=== PATIENT | male | born 1985 | race Native Hawaiian/Other Pacific Islander ===

== ENCOUNTER 2016-07-31 09:30 | Observation (INO) | payer OTHER ==
[2016-07-31 09:32] VITALS: BMI 21.5
[2016-07-31] MEDS ORDERED: Sodium Chloride 0.9% 1,000 ML IV STA (09:58)
[2016-07-31 10:10] LABS: BASO % 0.1 % (0.0-2.0); LYMPH # 0.7 K/uL (1.0-4.3); LYMPH % 7.1 % (20.0-40.0); MEAN CELL VOLUME 83.8 fl (80.0-94.0); MEAN CORPUSCULAR HEMOGLOBIN 28.2 pg (27.0-31.0); MEAN CORPUSCULAR HGB CONC 33.7 g/dL (33.0-37.0); MEAN PLATELET VOLUME 7.3 fl (7.2-11.7); MONO # 0.7 K/uL (0.0-0.8); NEUT # 8.4 K/uL (1.8-7.0); NEUT % 85.8 % (50.0-75.0); PLATELET COUNT 217 K/uL (130-400); RED CELL DISTRIBUTION WIDTH 13.9 % (11.5-14.5); WHITE BLOOD COUNT 9.8 K/uL (4.8-10.8)
[2016-07-31 10:23] LABS: ALB/GLOB RATIO 1.4 (1.0-2.1); ALKALINE PHOSPHATASE 66 U/L (38-126); ALT/SGPT 35 U/L (21-72); AST/SGOT 34 U/L (17-59); BILIRUBIN,TOTAL 0.6 mg/dl (0.2-1.3); BLOOD UREA NITROGEN 20 mg/dl (9-20); CALCIUM 9.4 mg/dL (8.4-10.2); CARBON DIOXIDE 26 mmol/L (22-30); CHLORIDE 98 mmol/L (98-107); GFR AFRICAN-AMERICAN > 60; GLUCOSE,RANDOM 127 mg/dL (75-110); POTASSIUM 4.2 MMOL/L (3.6-5.0); SODIUM 141 mmol/l (132-148); TOTAL PROTEIN 8.7 G/DL (6.3-8.2)
[2016-07-31 10:50] LABS: NEUTROPHIL 83 % (42-75); TOTAL CELLS COUNTED 100
--- NOTE | 2016-07-31 11:06 | CT ---
PROCEDURE: CT HEAD WITHOUT CONTRAST. HISTORY: severe headache COMPARISON: None available. TECHNIQUE: Axial computed tomography images were obtained through the head/brain without intravenous contrast. Radiation dose: Total exam DLP = 780.30 mGy-cm. This CT exam was performed using one or more of the following dose reduction techniques: Automated exposure control, adjustment of the mA and/or kV according to patient size, and/or use of iterative reconstruction technique. FINDINGS: HEMORRHAGE: No intracranial hemorrhage. BRAIN: No mass effect or edema. No atrophy or chronic microvascular ischemic changes. VENTRICLES: Unremarkable. No hydrocephalus. CALVARIUM: Unremarkable. PARANASAL SINUSES: Unremarkable as visualized. No significant inflammatory changes. MASTOID AIR CELLS: Unremarkable as visualized. No inflammatory changes. OTHER FINDINGS: None. IMPRESSION: No evidence of acute intracranial hemorrhage intracranial collection mass effect or midline shift.
[2016-07-31] MEDS ORDERED: Dextrose 5%/0.45% NS 1,000 ML IV SCH (11:15)
[2016-07-31] MEDS ORDERED: Dexamethasone 6 MG in Sodium Chloride 0.9% 50 ML IV STA (11:16)
--- NOTE | 2016-07-31 11:19 | ED PDOC ---
HPI: Headache Time Seen by Provider: 07/31/16 09:48 Chief Complaint (Nursing): Headache Chief Complaint (Provider): headache History Per: Patient, Family History/Exam Limitations: no limitations Onset/Duration Of Symptoms: Days (1), Sudden Onset Current Symptoms Are (Timing): Still Present Severity: Moderate Quality: Sharp Preceeding Symptoms: Known Migraine Symptoms Associated Symptoms: Photophobia, Nausea, Vomiting. denies: Blurred Vision, Extremity Weakness Additional Complaint(s): 31yo male presents c/o severe diffuse headache ongoing since yesterday morning at 5am. Symtoms associated with several episodes of nausea and vomiting, light sensitivity and malaise. Denies neck pain, rash or back pain. States had low grade fever last night. Went to [facility] [place] yesterday afternoon and given an injection for headache and nausea, went home with Rx for unknown nausea pills but unhelpful. Denies sick contacts, foreign travel or diarrhea. Has headaches about once monthly, usually when sleep deprived, and they resolve with sleep. Todays headache is similar in quality but more severe. Past Medical History Reviewed: Historical Data, Nursing Documentation, Vital Signs Vital Signs: Last Vital Signs Temp 99.7 F H 07/31/16 11:13 Pulse 71 07/31/16 09:32 Resp 19 07/31/16 09:32 BP 121/81 07/31/16 09:32 Pulse Ox 98 07/31/16 09:37 - Medical History Other PMH: frequent headaches - Surgical History Surgical History: No Surg Hx - Family History Family History: States: Unknown Family Hx - Living Arrangements Living Arrangements: With Family - Social History Current smoker - smoking cessation education provided: No Alcohol: Social (once month) Drugs: Denies - Allergies Allergies/Adverse Reactions: Allergies Allergy/AdvReac Type Severity Reaction Status Date / Time No Known Allergies Allergy Verified 07/31/16 09:37 Review of Systems ROS Statement: Except As Marked, All Systems Reviewed And Found Negative Constitutional: Positive for: Fever, Weakness, Malaise. Negative for: Sweats Eyes: Negative for: Vision Change, Redness ENT: Negative for: Nose Discharge, Throat Pain, Throat Swelling Cardiovascular: Negative for: Chest Pain, Palpitations Respiratory: Negative for: Cough, Shortness of Breath Gastrointestinal: Positive for: Nausea, Vomiting. Negative for: Abdominal Pain , Diarrhea Genitourinary Male: Negative for: Dysuria, Frequency Musculoskeletal: Negative for: Neck Pain, Shoulder Pain, Arm Pain, Leg Pain, Foot Pain Skin: Negative for: Rash, Lesions, Jaundice, Bruising Neurological: Positive for: Headache. Negative for: Weakness, Numbness, Change in Speech, Seizures, Altered Mental Status Psych: Negative for: Anxiety Physical Exam - Reviewed Nursing Documentation Reviewed: Yes Vital Signs Reviewed: Yes - Physical Exam Appears: Positive for: Well, Non-toxic, No Acute Distress Head Exam: Positive for: ATRAUMATIC, NORMAL INSPECTION, NORMOCEPHALIC Skin: Positive for: Normal Color, Warm, DRY Eye Exam: Positive for: Normal appearance, EOMI, PERRL. Negative for: Periorbital swelling, Conjunctival injection ENT: Positive for: Normal ENT Inspection. Negative for: Sinus Pain/Drainage Neck: Positive for: Normal, Painless ROM, Supple (neg kernigs sign ). Negative for: Decreased ROM, Pain On Movement Of Neck Cardiovascular/Chest: Positive for: Regular Rate, Rhythm Respiratory: Positive for: CNT, Normal Breath Sounds Pulses-Radial (L): 3+/4+ Pulses-Radial (R): 3+/4+ Gastrointestinal/Abdominal: Positive for: Normal Exam, Bowel Sounds, Soft. Negative for: Tenderness, Guarding Back: Positive for: Normal Inspection Extremity: Positive for: Normal ROM Neurologic/Psych: Positive for: Alert, bran mixer II-XII (intact), Oriented. Negative for: Motor/Sensory Deficits, Aphasia, Facial Droop - Laboratory Results Result Diagrams: 07/31/16 10:00 07/31/16 10:00 - ECG O2 Sat by Pulse Oximetry: 98 Pulse Ox Interpretation: Normal Medical Decision Making Medical Decision Making: workup initiated for headache in setting of known prior migrane symptoms without official diagnosis of migrane, with reported low grade fever last night but afebrile in ED rectal temp. Will evaluate bloodwork, CT head, initiate IVF, reglan, toradol and re-eval for improvement. Consider complex migrane, SAH, meningitis, cerbral mass, elevated ICP or other diagnoses not listed. 11:04 CT Head FINDINGS: HEMORRHAGE: No intracranial hemorrhage. BRAIN: No mass effect or edema. No atrophy or chronic microvascular ischemic changes. VENTRICLES: Unremarkable. No hydrocephalus. CALVARIUM: Unremarkable. PARANASAL SINUSES: Unremarkable as visualized. No significant inflammatory changes. MASTOID AIR CELLS: Unremarkable as visualized. No inflammatory changes. OTHER FINDINGS: None. IMPRESSION: No evidence of acute intracranial hemorrhage intracranial collection mass effect or midline shift. 12:15 Upon reevaluation patient states headache decreased in severity from a 7 to a 3. Patient continues to deny any neck pain and reports feeling overall better. 14:30 States pain returning, further IVF ordered, tylenol given. Given hematuria, neprhology Dr Romo contacted who recommended renal US and total CK, both of which were normal 1700: Pt attempted to ambulate and became acutely worse again, with headache and nausea. Discussed w Dr Courtney skin care consultant neurology, recommended depakote 500mg IV and admit for Obs, will consult. Without nuchal rigidity or neck pain, normal WBC, afebrile will avoid LP for now , neurology agrees. Disposition - Clinical Impression Clinical Impression: Headache, Vomiting - Patient ED Disposition Is Patient to be Admitted: Yes Counseled Patient/Family Regarding: Studies Performed, Diagnosis, Need For Followup - Disposition Disposition Time: 15:00 Condition: FAIR - Pt Status Changed To: Hospital Disposition Of: Observation - POA Present On Arrival: None
[2016-07-31 11:42] LABS: RBC URINE 72 /hpf (0-3); URINE BILIRUBIN NEGATIVE (NEGATIVE); URINE BLOOD MODERATE (NEGATIVE); URINE COLOR YELLOW (YELLOW); URINE GLUCOSE (UA) NEG (Normal); URINE KETONE NEGATIVE (NEGATIVE); URINE LEUKOCYTE ESTERASE NEG Leu/uL (Negative); URINE PROTEIN 30 mg/dL (NEGATIVE); URINE UROBILINOGEN 0.2-1.0 mg/dL (0.2-1.0); WBC URINE 3 /hpf (0-5)
[2016-07-31] MEDS ORDERED: Dexamethasone 4 mg/1 ml ONE (12:09)
--- NOTE | 2016-07-31 16:35 | US ---
PROCEDURE: Ultrasound of the Kidneys HISTORY: hematuria COMPARISON: None available. TECHNIQUE: Sonogram of the kidneys. FINDINGS: RIGHT KIDNEY: Measures: 5.7 x 10.7 cm. Normal in size, contour and echogenicity. No stone, solid mass lesion or hydronephrosis visualized. LEFT KIDNEY: Measures: 5.4 x 10.8 cm. Normal in size, contour and echogenicity. No stone, solid mass lesion or hydronephrosis visualized. OTHER FINDINGS: None. IMPRESSION: Unremarkable renal sonogram.
[2016-07-31] MEDS ORDERED: Valproate 500 MG in Sodium Chloride 0.9% 100 ML IVPB ONE (17:20)
[2016-07-31] MEDS ORDERED: Oxycodone/Acetaminophen 5/325 mg Tab PO PRN (19:48)
[2016-08-01 04:49] LABS: BASO % 0.3 % (0.0-2.0); LYMPH # 1.5 K/uL (1.0-4.3); LYMPH % 17.6 % (20.0-40.0); MEAN CELL VOLUME 84.1 fl (80.0-94.0); MEAN CORPUSCULAR HEMOGLOBIN 28.3 pg (27.0-31.0); MEAN CORPUSCULAR HGB CONC 33.7 g/dL (33.0-37.0); MEAN PLATELET VOLUME 7.6 fl (7.2-11.7); MONO % 11.3 % (0.0-10.0); NEUT % 70.8 % (50.0-75.0); RED CELL DISTRIBUTION WIDTH 13.9 % (11.5-14.5); WHITE BLOOD COUNT 8.5 K/uL (4.8-10.8)
[2016-08-01 04:52] LABS: ALB/GLOB RATIO 1.5 (1.0-2.1); ALKALINE PHOSPHATASE 56 U/L (38-126); ALT/SGPT 31 U/L (21-72); AST/SGOT 22 U/L (17-59); BILIRUBIN,TOTAL 0.6 mg/dl (0.2-1.3); BLOOD UREA NITROGEN 18 mg/dl (9-20); CALCIUM 8.5 mg/dL (8.4-10.2); CARBON DIOXIDE 27 mmol/L (22-30); CHLORIDE 101 mmol/L (98-107); GFR AFRICAN-AMERICAN > 60; GLUCOSE,RANDOM 98 mg/dL (75-110); POTASSIUM 4.2 MMOL/L (3.6-5.0); SODIUM 139 mmol/l (132-148); TOTAL PROTEIN 6.7 G/DL (6.3-8.2)
--- NOTE | 2016-08-01 09:22 | CP.PCM.HP ---
History of Present Illness - History of Present Illness History of Present Illness: pt admitted for headache continuous since last , nof c/ n/v/d. has had rebollar in past usually associated w/ lack fo sleep. no f/c, n/v/d. noneuro deficits noted/reported. rebollar is improved atp resnet described as ache. still w/ some photophobia. Present on Admission - Present on Admission Any Indicators Present on Admission: No Review of Systems - Neurological Neurological: As Per HPI, Headaches Past Patient History - Past Social History Smoking Status: Never Smoked - CARDIAC Hx Cardiac Disorders: No - PULMONARY Hx Respiratory Disorders: No - NEUROLOGICAL Hx Neurological Disorder: No - HEENT Hx HEENT Problems: No - RENAL Hx Chronic Kidney Disease: No - ENDOCRINE/METABOLIC Hx Endocrine Disorders: No - HEMATOLOGICAL/ONCOLOGICAL Hx Blood Disorders: No Hx AIDS: No Hx Human Immunodeficiency Virus (HIV): No - INTEGUMENTARY Hx Dermatological Problems: No - MUSCULOSKELETAL/RHEUMATOLOGICAL Hx Falls: No Hx Fractures: Yes (Elbow (as a kid)) - GASTROINTESTINAL Hx Gastrointestinal Disorders: No - GENITOURINARY/GYNECOLOGICAL Hx Genitourinary Disorders: No - PSYCHIATRIC Hx Psychophysiologic Disorder: No Hx Substance Use: No - SURGICAL HISTORY Hx Surgeries: No - ANESTHESIA Hx Anesthesia: No Meds Allergies/Adverse Reactions: Allergies Allergy/AdvReac Type Severity Reaction Status Date / Time Cats Allergy COUGH Uncoded 08/01/16 01:58 Physical Exam - Constitutional Appears: Well, Non-toxic, No Acute Distress - Head Exam Head Exam: ATRAUMATIC, NORMAL INSPECTION, NORMOCEPHALIC - Eye Exam Eye Exam: EOMI, Normal appearance, PERRL Pupil Exam: NORMAL ACCOMODATION, PERRL - ENT Exam ENT Exam: Mucous Membranes Moist, Normal Exam - Neck Exam Neck exam: Positive for: Normal Inspection - Respiratory Exam Respiratory Exam: Clear to Auscultation Bilateral, NORMAL BREATHING PATTERN - Cardiovascular Exam Cardiovascular Exam: REGULAR RHYTHM, RRR, +S1, +S2 - GI/Abdominal Exam GI & Abdominal Exam: Normal Bowel Sounds, Soft. absent: Tenderness - Extremities Exam Extremities exam: Positive for: full ROM, normal capillary refill, normal inspection, pedal pulses present - Back Exam Back exam: NORMAL INSPECTION - Neurological Exam Neurological exam: Alert, CN II-XII Intact, Normal Gait, Oriented x3, Reflexes Normal - Psychiatric Exam Psychiatric exam: Normal Affect, Normal Mood - Skin Skin Exam: Dry, Intact, Normal Color, Warm Results - Vital Signs Recent Vital Signs: Last Vital Signs Temp 98.8 F 08/01/16 07:57 Pulse 75 08/01/16 07:57 Resp 18 08/01/16 07:57 BP 108/64 08/01/16 07:57 Pulse Ox 97 08/01/16 07:57 - Labs Result Diagrams: 08/01/16 03:50 08/01/16 04:05 Labs: Laboratory Results - last 24 hr 08/01/16 08/01/16 03:50 04:05 WBC 8.5 RBC 4.40 Hgb 12.5 Hct 37.0 MCV 84.1 MCH 28.3 MCHC 33.7 RDW 13.9 Plt Count 196 MPV 7.6 Neut % (Auto) 70.8 Lymph % (Auto) 17.6 L [place] % (Auto) 11.3 H Eos % (Auto) 0.0 Baso % (Auto) 0.3 Neut # 6.0 Lymph # 1.5 [place] # 1.0 H Eos # 0.0 Baso # 0.0 Sodium 139 Potassium 4.2 Chloride 101 Carbon Dioxide 27 Anion Gap 15 BUN 18 Creatinine 0.9 Est GFR ( Amer) > 60 Est GFR (Non-Af Amer) > 60 Random Glucose 98 Calcium 8.5 Total Bilirubin 0.6 AST 22 ALT 31 Alkaline Phosphatase 56 Total Protein 6.7 Albumin 4.0 Globulin 2.7 Albumin/Globulin Ratio 1.5 Assessment & Plan (1) DVT prophylaxis Assessment and Plan: scd and aehose ambulation Status: Acute (2) Headache Assessment and Plan: toradol, percocet neuro consult ivf steroids and depakote given in ER ?? dc today risk factors and modifiers d/c w/ pt Status: Acute Decision To Admit - Pt Status Changed To: Hospital Disposition Of: Observation - . Bed Request Type: Telemetry Admitting Physician: Lluvia Main
[2016-08-01 12:06] VITALS: O2SAT 98
--- NOTE | 2016-08-01 12:44 | CON ---
DATE: 08/01/2016 CHIEF COMPLAINT: Headache. HISTORY OF PRESENT ILLNESS: This is a 31-year-old man with past medical history of headaches who pre sented with worsening diffuse pressure headache starting frontally and diffusing throughout, associ ed with photophobia, phonophobia, nausea and vomiting with occasional scintillating scotomas, but no paresthesias or weakness in the extremities. A CT head showed no acute intracranial abnormality. He has some cervical tightness, but no meningismus, no signs of meningitis. He does get an average of 3 or 4 headaches a month and has very poor sleep hygiene, as well as staring in front of the computer at his job for more than 6-7 hours at a time. He has a very high stressful job also and have been h aving stresses recently and has been less sleep. Currently, his headaches are much better since he w as given a headache cocktail in the ER. No focal neurological signs seen. CT head showed no acute i ntracranial abnormality. PAST MEDICAL HISTORY: History of headaches. SOCIAL HISTORY: No illicit drug use, smoking, or ETOH abuse. FAMILY HISTORY: Noncontributory. ALLERGIES: No known drug allergies. ALLERGIC TO CATS. REVIEW OF SYSTEMS: A 14-point review of systems is negative except for the HPI. MEDICATIONS: Reviewed via nurse's reconciliation sheet. FAMILY HISTORY: Noncontributory. PHYSICAL EXAMINATION: VITAL SIGNS: Temperature 98.8, pulse rate 75, blood pressure 108/64, respiratory rate of 18, oxygen saturation 97% via room air. GENERAL: The patient is sitting up in bed in no acute distress. HEENT: Atraumatic, normocephalic. PERRLA. Extraocular muscles intact. NECK: Supple, no JVD, no adenopathy noted. LUNGS: Clear to auscultation. No adventitious sounds. HEART: S1, S2, normal rate and rhythm. No murmurs, rubs, or gallops. ABDOMEN: Soft, nontender, nondistended. Bowel sounds are present. EXTREMITIES: No clubbing, no cyanosis. Peripheral pulses 2+ felt bilaterally. NEUROLOGIC: The patient is alert, oriented to person, place, month and year. Speech is fluent, with out any errors. Cranial nerves II through XII are intact. MOTOR: Moves all extremities equally. Toes downgoing bilaterally. SENSORY: Light touch, pinprick, proprioception, vibration is intact. DTRs 2+ throughout. COORDINATION: [id number] intact. GAIT: Deferred for now. MUSCULOSKELETAL: Has cervical neck tightness. LABORATORY DATA: Sodium is 139, potassium 4.2, chloride of 101, carbon dioxide 27, BUN of 18, creati nine 0.9, random glucose 98. Liver function test is normal. ASSESSMENT AND PLAN: This is a 31-year-old man with history of headaches who has been having worseni ng headaches, diffuse pressure type, frontal and diffuses throughout with some auras and was being in tractable; therefore, came to the hospital for further evaluation. CT head showed no acute intracran ial abnormality. No focal neurological signs. IMPRESSION: This is status migrainosus, which he has responded to headache cocktail in the Emergency Room. Will recommend: 1. Sleep hygiene, needs to get more sleep and advised relaxation techniques. 2. Will give 1 more dose of IV Solu-Medrol and Zofran to further dampen down the headache. 3. Will give Fioricet 1 tab p.o. q. 4 hours p.r.n. at acute onset of headache. 4. Will recommend him to be on gabapentin 300 mg p.o. at bedtime at 7:00 p.m. for daily prevention. He can follow up with me in a month. Case discussed with the patient and . Will sign off. Raimundo Courtney MD cc: [id number] TT: 08/01/2016 12:44:11 Confirmation # [id number] Dictation # [id number] genevieve
[2016-08-01] MEDS ORDERED: SODIUM CHLORIDE 0.9% IV ONE (12:45)
[2016-08-01] MEDS ORDERED: METHYLPREDNISOLONE IV ONE (12:45)
[2016-08-01] MEDS: Apap-Butalbital-Caffeine 325-50-40mg Tab PO SCH ×2 (12:52→16:56)
--- NOTE | 2016-08-01 13:12 | CP.PCM.CON ---
History of Present Illness - History of Present Illness History of Present Illness: 31 y/o male with Hx/o headaches associated with sleep deprivation & usually resolve after sleep is admitted for worse headachesfor the last few days, L[place] is asssoc with N&V Denies flank pain. Renal consult is requested because of microscopic hematuria.No dysmorphic RBCs reported Pt reprts that the urine has always been yellowish. There is no Hx/o kidney stones. No recent URI. No Hx/o kidney during childhood or infancy. There is no FHx/o kidney dis, hematuria Past Patient History - Past Social History Smoking Status: Never Smoked - CARDIAC Hx Cardiac Disorders: No - PULMONARY Hx Respiratory Disorders: No - NEUROLOGICAL Hx Neurological Disorder: No - HEENT Hx HEENT Problems: No - RENAL Hx Chronic Kidney Disease: No - ENDOCRINE/METABOLIC Hx Endocrine Disorders: No - HEMATOLOGICAL/ONCOLOGICAL Hx Blood Disorders: No Hx AIDS: No Hx Human Immunodeficiency Virus (HIV): No - INTEGUMENTARY Hx Dermatological Problems: No - MUSCULOSKELETAL/RHEUMATOLOGICAL Hx Falls: No Hx Fractures: Yes (Elbow (as a kid)) - GASTROINTESTINAL Hx Gastrointestinal Disorders: No - GENITOURINARY/GYNECOLOGICAL Hx Genitourinary Disorders: No - PSYCHIATRIC Hx Psychophysiologic Disorder: No Hx Substance Use: No - SURGICAL HISTORY Hx Surgeries: No - ANESTHESIA Hx Anesthesia: No Meds Allergies/Adverse Reactions: Allergies Allergy/AdvReac Type Severity Reaction Status Date / Time Cats Allergy COUGH Uncoded 08/01/16 01:58 - Medications Medications: Current Medications Acetaminophen/Butalbital/Caffeine (Fioricet) 1 tab PO Q4 [facility] Last Admin: 08/01/16 12:52 Dose: 1 tab Diphenhydramine HCl (Benadryl) 25 mg PO HS [facility] Last Admin: 07/31/16 23:28 Dose: Not Given Gabapentin (Neurontin) 300 mg PO HS [facility] Methylprednisolone 0.5 gm/ (Sodium Chloride) 100 mls @ 100 mls/hr IV ONCE ONE Stop: 08/01/16 13:44 Ketorolac Tromethamine (Toradol) 30 mg IVP Q6 PRN PRN Reason: headache 2-5 Ondansetron HCl (Zofran Tab) 4 mg PO Q8H PRN PRN Reason: Nausea/Vomiting Oxycodone/Acetaminophen (Percocet 5/325 Mg Tab) 1 tab PO Q8H PRN PRN Reason: Pain, severe (8-10) Stop: 08/03/16 19:49 Last Admin: 07/31/16 20:46 Dose: 1 tab Physical Exam - Constitutional Additional comments: Appears uncomfortable secodary to headache - Head Exam Head Exam: ATRAUMATIC, NORMOCEPHALIC - Eye Exam Additional comments: No icterus. Conjunctivae injected - ENT Exam ENT Exam: Mucous Membranes Dry - Neck Exam Additional comments: Neck supple - Respiratory Exam Additional comments: Lungs clear - Cardiovascular Exam Cardiovascular Exam: REGULAR RHYTHM - GI/Abdominal Exam GI & Abdominal Exam: Soft Additional comments: Abd is nontender. No CVA tenderness - Extremities Exam Additional comments: No edema or cyanosis Results - Vital Signs Recent Vital Signs: Last Vital Signs Temp 98.9 F 08/01/16 12:06 Pulse 71 08/01/16 12:06 Resp 18 08/01/16 12:06 BP 115/74 08/01/16 12:06 Pulse Ox 98 08/01/16 12:06 - Labs Result Diagrams: 08/01/16 03:50 08/01/16 04:05 Labs: Laboratory Results - last 24 hr 08/01/16 08/01/16 03:50 04:05 WBC 8.5 RBC 4.40 Hgb 12.5 Hct 37.0 MCV 84.1 MCH 28.3 MCHC 33.7 RDW 13.9 Plt Count 196 MPV 7.6 Neut % (Auto) 70.8 Lymph % (Auto) 17.6 L [place] % (Auto) 11.3 H Eos % (Auto) 0.0 Baso % (Auto) 0.3 Neut # 6.0 Lymph # 1.5 [place] # 1.0 H Eos # 0.0 Baso # 0.0 Sodium 139 Potassium 4.2 Chloride 101 Carbon Dioxide 27 Anion Gap 15 BUN 18 Creatinine 0.9 Est GFR ( Amer) > 60 Est GFR (Non-Af Amer) > 60 Random Glucose 98 Calcium 8.5 Total Bilirubin 0.6 AST 22 ALT 31 Alkaline Phosphatase 56 Total Protein 6.7 Albumin 4.0 Globulin 2.7 Albumin/Globulin Ratio 1.5 Assessment & Plan - Assessment and Plan (Free Text) Assessment: Microscopic hematuria Etiology not clear at this time. Ddx = calculi/crystalluria, thin BM dis,IgA nephropathy (less likely) Headaches Plan: Will repeat UA, C&S Renal US report reviewed. Unremarkable renal US IgA level
[2016-08-01 15:40] LABS: RBC URINE 2 /hpf (0-3); URINE BILIRUBIN NEGATIVE (NEGATIVE); URINE BLOOD NEGATIVE (NEGATIVE); URINE COLOR YELLOW (YELLOW); URINE GLUCOSE (UA) NEG (Normal); URINE KETONE NEGATIVE (NEGATIVE); URINE LEUKOCYTE ESTERASE NEG Leu/uL (Negative); URINE PROTEIN NEGATIVE (NEGATIVE); WBC URINE 1 /hpf (0-5)
[2016-08-01 16:39] VITALS: BP 117/73; PULSE 63; RESP 16; TEMP 97.9
--- NOTE | 2016-08-02 14:14 | CP.PCM.DIS ---
Provider - Provider Date of Admission: 07/31/16 17:13 Attending physician: Lluvia Main MD Time Spent in preparation of Discharge (in minutes): 15 Diagnosis - Discharge Diagnosis (1) DVT prophylaxis Status: Acute (2) Headache Status: Acute Hospital Course - Lab Results Lab Results: Micro Results 08/01/16 15:25 Urine,Clean Catch Urine Culture - Final No Growth (<1,000 CFU/ML) Most Recent Lab Values WBC 8.5 K/uL (4.8-10.8) 08/01/16 03:50 RBC 4.40 Mil/uL (4.40-5.90) 08/01/16 03:50 Hgb 12.5 g/dL (12.0-18.0) 08/01/16 03:50 Hct 37.0 % (35.0-51.0) 08/01/16 03:50 MCV 84.1 fl (80.0-94.0) 08/01/16 03:50 MCH 28.3 pg (27.0-31.0) 08/01/16 03:50 MCHC 33.7 g/dL (33.0-37.0) 08/01/16 03:50 RDW 13.9 % (11.5-14.5) 08/01/16 03:50 Plt Count 196 K/uL (130-400) 08/01/16 03:50 MPV 7.6 fl (7.2-11.7) 08/01/16 03:50 Neut % (Auto) 70.8 % (50.0-75.0) 08/01/16 03:50 Lymph % (Auto) 17.6 % (20.0-40.0) L 08/01/16 03:50 [place] % (Auto) 11.3 % (0.0-10.0) H 08/01/16 03:50 Eos % (Auto) 0.0 % (0.0-4.0) 08/01/16 03:50 Baso % (Auto) 0.3 % (0.0-2.0) 08/01/16 03:50 Neut # 6.0 K/uL (1.8-7.0) 08/01/16 03:50 Lymph # 1.5 K/uL (1.0-4.3) 08/01/16 03:50 [place] # 1.0 K/uL (0.0-0.8) H 08/01/16 03:50 Eos # 0.0 K/uL (0.0-0.7) 08/01/16 03:50 Baso # 0.0 K/uL (0.0-0.2) 08/01/16 03:50 Neutrophils % (Manual) 83 % (42-75) H 07/31/16 10:00 Band Neutrophils % 6 % (0-2) H 07/31/16 10:00 Lymphocytes % (Manual) 3 % (20-50) L 07/31/16 10:00 Monocytes % (Manual) 8 % (0-10) 07/31/16 10:00 Platelet Estimate Normal (NORMAL) 07/31/16 10:00 Sodium 139 mmol/l (132-148) 08/01/16 04:05 Potassium 4.2 MMOL/L (3.6-5.0) 08/01/16 04:05 Chloride 101 mmol/L (98-107) 08/01/16 04:05 Carbon Dioxide 27 mmol/L (22-30) 08/01/16 04:05 Anion Gap 15 (10-20) 08/01/16 04:05 BUN 18 mg/dl (9-20) 08/01/16 04:05 Creatinine 0.9 mg/dL (0.8-1.5) 08/01/16 04:05 Est GFR ( Amer) > 60 08/01/16 04:05 Est GFR (Non-Af Amer) > 60 08/01/16 04:05 Random Glucose 98 mg/dL (75-110) 08/01/16 04:05 Calcium 8.5 mg/dL (8.4-10.2) 08/01/16 04:05 Total Bilirubin 0.6 mg/dl (0.2-1.3) 08/01/16 04:05 AST 22 U/L (17-59) 08/01/16 04:05 ALT 31 U/L (21-72) 08/01/16 04:05 Alkaline Phosphatase 56 U/L (38-126) 08/01/16 04:05 Total Creatine Kinase 92 U/L (55-170) 07/31/16 10:00 Total Protein 6.7 G/DL (6.3-8.2) 08/01/16 04:05 Albumin 4.0 g/dL (3.5-5.0) 08/01/16 04:05 Globulin 2.7 gm/dL (2.2-3.9) 08/01/16 04:05 Albumin/Globulin Ratio 1.5 (1.0-2.1) 08/01/16 04:05 Urine Color Yellow (YELLOW) 08/01/16 15:25 Urine Clarity Slighty-cloudy (Clear) 08/01/16 15:25 Urine pH 7.0 (5.0-8.0) 08/01/16 15:25 Ur Specific [place] 1.017 (1.003-1.030) 08/01/16 15:25 Urine Protein Negative mg/dL (NEGATIVE) 08/01/16 15:25 Urine Glucose (UA) Neg mg/dL (Normal) 08/01/16 15:25 Urine Ketones Negative mg/dL (NEGATIVE) 08/01/16 15:25 Urine Blood Negative (NEGATIVE) 08/01/16 15:25 Urine Nitrate Negative (NEGATIVE) 08/01/16 15:25 Urine Bilirubin Negative (NEGATIVE) 08/01/16 15:25 Urine Urobilinogen 4.0 mg/dL (0.2-1.0) 08/01/16 15:25 Ur Leukocyte Esterase Neg Nelly/uL (Negative) 08/01/16 15:25 Urine RBC (Auto) 2 /hpf (0-3) 08/01/16 15:25 Urine Microscopic WBC 1 /hpf (0-5) 08/01/16 15:25 Ur Squamous Epith Cells < 1 /hpf (0-5) 08/01/16 15:25 Amorphous Sediment Rare /ul (<OCC) H 08/01/16 15:25 Urine Opiates Screen Negative (NEGATIVE) 07/31/16 11:26 Urine Methadone Screen Negative (NEGATIVE) 07/31/16 11:26 Ur Barbiturates Screen Negative (NEGATIVE) 07/31/16 11:26 Ur Phencyclidine Scrn Negative (NEGATIVE) 07/31/16 11:26 Ur Amphetamines Screen Negative (NEGATIVE) 07/31/16 11:26 U Benzodiazepines Scrn Negative (NEGATIVE) 07/31/16 11:26 U Oth Cocaine Metabols Negative (NEGATIVE) 07/31/16 11:26 U Cannabinoids Screen Negative (NEGATIVE) 07/31/16 11:26 IgA 297.9 mg/dL (70.0-400.0) 08/01/16 15:42 Discharge Exam - Head Exam Head Exam: ATRAUMATIC, NORMOCEPHALIC Discharge Plan - Follow Up Plan Condition: FAIR Disposition: HOME/ ROUTINE Instructions: Migraine Headache (DC), Acute Nausea and Vomiting (DC), Acute Hematuria (DC)
== END 2016-08-01 17:05 | disposition home or self-care (01) ==
LOC: H.ER 09:30 → H.ERHOLD 17:13 → H.TEL 20:27
PROVIDERS: ADMIT Family Medicine; ATTEND Family Medicine
DX: G43.901 Migraine, unspecified, not intractable, with status migrainosus (principal); R31.29 Other microscopic hematuria; Z72.820 Sleep deprivation